=== PATIENT | male | born 1985 | race Hispanic/Latino ===

== ENCOUNTER 2023-02-20 19:14 | Emergency (ER) | payer OTHER ==
[~2023-02-20] VITALS: Ht 175.3 cm; Wt 166.5 kg
[2023-02-20] MEDS ORDERED: CEPHALEXIN500 MG PO (21:51)
[2023-02-20] MEDS ORDERED: BACTRIM DS TAB1 EACH PO (21:51)
[2023-02-20 22:14] VITALS: BP 140/84; PULSE 90; RESP 18; TEMP 98.3; O2SAT 100
== END 2023-02-20 20:00 | disposition home or self-care (01) ==
LOC: ER 19:34
DX: S31.010A Laceration without foreign body of lower back and pelvis without penetration into retroperitoneum, initial encounter (principal); L03.312 Cellulitis of back [any part except buttock and flank]; W01.118A Fall on same level from slipping, tripping and stumbling with subsequent striking against other sharp object, initial encounter; W26.0XXA Contact with knife, initial encounter; Y92.89 Other specified places as the place of occurrence of the external cause
CPT/HCPCS: 99284